=== PATIENT | female | born 1960 | race African-American/Black ===

== ENCOUNTER 2016-09-13 10:35 | Outpatient (CLI) | payer MEDICARE, MEDICAID ==
[2016-09-13 11:46] LABS: #Basophils 0.1 thou/uL (0.0-0.2); #Eosinphils 0.1 thou/uL (0.0-0.7); #Lymphocytes 2.4 thou/uL (1.20-3.40); #Monocytes 0.7 thou/uL (0.11-0.59); #Neutrophils 4.4 thou/uL (1.40-6.50); %Basophils 0.7 % (0.0-1.0); %Eosinophils 1.3 % (0.0-10.0); %Lymphocytes 31.5 % (21.0-51.0); %Monocytes 8.8 % (0.0-10.0); Mean Platelet Volume 6.6 fL (7.4-10.4); Red Blood Cell (RBC) Count 5.43 mill/uL (4.20-5.40); White Blood Cell (WBC) Count 7.7 thou/uL (4.8-10.8)
[2016-09-13 11:55] LABS: ALT (SGPT) 21 U/L (0-55); AST (SGOT) 17 U/L (5-34); Alkaline Phosphatase 101 U/L (40-150); Anion Gap 12 mmol/L (10-20); BUN (Urea Nitrogen) 11 mg/dL (9.8-20.1); Bilirubin, Direct 0.2 mg/dL (0.1-0.3); Bilirubin, Total 0.5 mg/dL (0.2-1.2); Calc. Creatinine Clearance 0 mL/min (70-130); Carbon Dioxide 27 mmol/L (22-29); Chloride 104 mmol/L (98-107); Estimated GFR-MDRD 83; LDL Cholesterol, Calculated 173 mg/dL; Protein, Total 6.8 g/dL (6.0-8.3)
[2016-09-13 14:05] LABS: Hemoglobin A1c 5.8 % (4.0-6.0)
== END 2016-09-13 10:36 | disposition home or self-care (01) ==
LOC: NAVSJIPCSP 10:35
PROVIDERS: ATTEND Family Medicine
DX: I10 Essential (primary) hypertension (principal); Z79.899 Other long term (current) drug therapy
CPT/HCPCS: 80048; 80061; 80076; 83036; 84443; 85025

== ENCOUNTER 2017-01-16 08:56 | Outpatient (CLI) | payer MEDICARE, MEDICAID ==
[2017-01-16 09:37] LABS: Hemoglobin A1c 5.7 % (4.0-6.0)
[2017-01-16 10:02] LABS: ALT (SGPT) 13 U/L (8-55); AST (SGOT) 11 U/L (5-34); Albumin 3.7 g/dL (3.5-5.0); Alkaline Phosphatase 93 U/L (40-150); Anion Gap 15 mmol/L (10-20); BUN (Urea Nitrogen) 10 mg/dL (9.8-20.1); Bilirubin, Direct 0.2 mg/dL (0.1-0.3); Bilirubin, Total 0.7 mg/dL (0.2-1.2); Calc. Creatinine Clearance 0 mL/min (70-130); Calcium 8.4 mg/dL (7.8-10.44); Carbon Dioxide 24 mmol/L (22-29); Cardiac Risk 3.9 (Less than 4.5); Chloride 104 mmol/L (98-107); Cholesterol 144 mg/dl (< 200 Desired); Estimated GFR-MDRD 84; Glucose 109 mg/dL (70-105); HDL Cholesterol 37 mg/dL (>60 Neg Risk); LDL Cholesterol, Calculated 78 mg/dL; Potassium 3.9 mmol/L (3.5-5.1); Protein, Total 6.7 g/dL (6.0-8.3); Sodium 139 mmol/L (136-145); Triglycerides 145 mg/dL (Less than 150)
[2017-01-16 10:28] LABS: #Basophils 0.1 thou/uL (0.0-0.2); #Eosinphils 0.1 thou/uL (0.0-0.7); #Lymphocytes 2.4 thou/uL (1.20-3.40); #Monocytes 0.6 thou/uL (0.11-0.59); %Basophils 0.9 % (0.0-1.0); %Eosinophils 1.6 % (0.0-10.0); %Lymphocytes 29.4 % (21.0-51.0); %Monocytes 7.4 % (0.0-10.0); %Neutrophils 60.7 % (42.0-75.0); Hemoglobin 11.4 g/dL (12.0-16.0); Mean Corpuscular HGB CONC 30.9 g/dL (32.0-36.0); Mean Corpuscular Volume 71.1 fl (81.0-99.0); Mean Platelet Volume 7.3 fL (7.4-10.4); Platelet Count 312 thou/uL (130-400); RBC Distribution Width 13.4 % (11.5-14.5); Red Blood Cell (RBC) Count 5.19 mill/uL (4.20-5.40); White Blood Cell (WBC) Count 8.3 thou/uL (4.8-10.8)
[2017-01-16 10:29] LABS: Anisocytosis SLIGHT = 6-15 cells (100X) (0-5/hpf); Large Platelets SLIGHT; MDiff Complete? YES; Microcytosis SLIGHT = 6-15 cells (100X) (0-5/hpf); PLT Morphology Comment Appears Adequate
== END 2017-01-16 08:57 ==
LOC: NAVSJIPCSP 08:56 → NAV LAB 08:57
PROVIDERS: ATTEND Family Medicine
DX: E78.5 Hyperlipidemia, unspecified (principal); J30.9 Allergic rhinitis, unspecified; J40 Bronchitis, not specified as acute or chronic; M12.9 Arthropathy, unspecified; M54.17 Radiculopathy, lumbosacral region; I10 Essential (primary) hypertension
CPT/HCPCS: 80048; 80061; 80076; 83036; 84443; 85025

== ENCOUNTER 2017-03-02 15:27 | Emergency (ER) | payer MEDICARE, OTHER ==
[2017-03-02] MEDS ORDERED: Morphine Sulfate 2 MG/ML SYRINGE ONE (16:12)
[2017-03-02] MEDS ORDERED: Cyclobenzaprine 10 MG TAB ONE (16:13)
[2017-03-02] MEDS ORDERED: Acetaminophen 500 MG TAB ONE (16:13)
[2017-03-02] MEDS ORDERED: Ibuprofen 800 MG TAB ONE (16:13)
== END 2017-03-02 16:38 | disposition home or self-care (01) ==
LOC: NAV ERS 15:27
DX: M54.5 Low back pain (principal); I10 Essential (primary) hypertension; E78.00 Pure hypercholesterolemia, unspecified; K21.9 Gastro-esophageal reflux disease without esophagitis; F32.9 Major depressive disorder, single episode, unspecified; Z79.899 Other long term (current) drug therapy
CPT/HCPCS: 96372; J2270

== ENCOUNTER 2017-03-27 12:38 | Outpatient (CLI) | payer MEDICARE, OTHER ==
--- NOTE | 2017-03-27 15:59 | RAD ---
THREE VIEWS LUMBAR SPINE 03/27/2017 HISTORY: Lumbar radiculopathy. FINDINGS: There are five [id number] lumbar type vertebral bodies. Scattered osteophytes are seen wit hin the lumbar spine. There is narrowing of the L4-L5 and L5-S1 intervertebral disk spaces. The ve rtebral body heights are within normal limits. No fracture or subluxation is seen involving the lum bar spine. Surgical clips overly the right upper quadrant. Phleboliths overly the pelvis. IMPRESSION: Degenerative changes in the lumbar spine without evidence of a fracture or subluxation visualized. POS: ERICK
== END 2017-03-27 12:39 | disposition home or self-care (01) ==
LOC: NAV RAD 12:38
PROVIDERS: ATTEND Family Medicine
DX: M54.17 Radiculopathy, lumbosacral region (principal)
CPT/HCPCS: 72100

== ENCOUNTER 2018-11-14 13:08 | Outpatient (CLI) | payer MEDICARE, MEDICAID ==
--- NOTE | 2018-11-14 13:33 | RAD ---
RIGHT HIP 2 VIEWS: Date: 11/14/18 HISTORY: Hip pain. COMPARISON: None. FINDINGS: No fracture. No malalignment. Mild acetabular osteophyte formation. Small phleboliths in the pelvis. Mild enthesopathic changes of the greater trochanter. IMPRESSION: Low grade degenerative changes. No acute abnormality. POS: [facility]
== END 2018-11-14 13:09 | disposition home or self-care (01) ==
LOC: NAV RAD 13:08
PROVIDERS: ATTEND Family Medicine
DX: M25.551 Pain in right hip (principal); M06.9 Rheumatoid arthritis, unspecified; M16.11 Unilateral primary osteoarthritis, right hip

== ENCOUNTER 2019-03-18 12:15 | Outpatient (CLI) | payer MEDICARE, MEDICAID ==
[2019-03-18 13:31] LABS: Bacteria/HPF 1+ HPF (None Seen); Bilirubin Negative (Negative); Blood, Urine Trace (Negative); Clarity Hazy (Clear); Glucose, Urine (Dipstick) Negative (Negative); Leukocyte Negative (Negative); Nitrite Negative (Negative); Protein, Urine (Dipstick) Negative (Neg-Trace); RBC/HPF 0-3 HPF (0-3); Urobilinogen 0.2 mg/dL (Less than 2); WBC/HPF 0-3 HPF (0-3)
== END 2019-03-18 12:16 | disposition home or self-care (01) ==
LOC: NAV LAB 12:15
PROVIDERS: ATTEND Family Medicine
DX: R39.15 Urgency of urination (principal)
CPT/HCPCS: 81003; 81015; 87086

== ENCOUNTER 2021-07-19 10:29 | Outpatient (CLI) | payer MEDICARE | END 2021-07-19 10:30 | disposition home or self-care (01) | LOC: NAV RAD 10:29 | PROVIDERS: ATTEND Family Medicine | DX: R20.2 Paresthesia of skin (principal); M75.81 Other shoulder lesions, right shoulder; R29.898 Other symptoms and signs involving the musculoskeletal system; M47.812 Spondylosis without myelopathy or radiculopathy, cervical region; M48.02 Spinal stenosis, cervical region | CPT/HCPCS: 72052 ==